=== PATIENT | male | born 1955 ===

== ENCOUNTER 2019-01-19 09:02 | Outpatient (CLI) | payer MEDICARE, BC ==
[2019-01-19] MEDS ORDERED: ALBUTEROL NEB 2.5 MG/3 ML INH ONE (11:00)
== END 2019-01-19 09:03 | disposition home or self-care (01) ==
LOC: RT 09:02
PROVIDERS: ATTEND Internal Medicine
DX: R06.2 Wheezing (principal)
CPT/HCPCS: 94060

== ENCOUNTER 2019-02-16 10:46 | Outpatient (CLI) | payer MEDICARE, BC ==
--- NOTE | 2019-02-16 13:32 | CT Report ---
Reason: PERSONAL HISTORY OF NICOTINE DEPENDENCE Procedure Date: 02/16/2019 Accession Number: [id number] / [id number] Procedure: CT - Low Dose Lung Cancer Screen CPT Code: FULL RESULT: EXAM CT LUNG SCREEN EXAM DATE: 02/16/2019 11:28 AM. HISTORY: 63-year-old patient with [id number] smoking history. Currently smoking: Yes. COMPARISON: None. TECHNIQUE: CT examination of the entire thorax without contrast was performed using low-dose technique. Thin section coronal, axial, sagittal and MIP axial images were obtained. In accordance with CT protocol optimization, one or more of the following dose reduction techniques were utilized for this exam: automated exposure control, adjustment of mA and/or KV based on patient size, or use of iterative reconstructive technique. FINDINGS: Nodules: Right upper lobe: 3 mm nodule image 50 series 4. 7 mm nodule image 79. Right middle lobe: None. Right lower lobe: None. Left upper lobe: None. Left lower lobe: 3 mm nodule image 106. Emphysema: Minimal. Pleura: Unremarkable. Aorta: Moderately atherosclerotic. Mediastinum: Unremarkable. Coronary calcifications: Severe three-vessel coronary calcifications. Other pulmonary findings: Small amount of scarring in the right upper lobe inferiorly. Other extrapulmonary findings: Hyperdensity within the gallbladder, vicarious excretion of contrast versus small calculi/sludge. IMPRESSION: Lung-RADS ASSESSMENT CATEGORY: 3 - probably benign. Probability of malignancy: 1-2%. RECOMMENDATION: Recommend 6 month follow-up low-dose chest CT. RADIA
== END 2019-02-16 10:47 | disposition home or self-care (01) ==
LOC: DI 10:46
PROVIDERS: ATTEND Internal Medicine
DX: Z12.2 Encounter for screening for malignant neoplasm of respiratory organs (principal); F17.210 Nicotine dependence, cigarettes, uncomplicated

== ENCOUNTER 2020-08-29 06:54 | Outpatient (CLI) | payer MEDICARE, BC ==
--- NOTE | 2020-08-29 09:09 | Ultrasound Report ---
PROCEDURE: Aorta Screening INDICATIONS: SCREENING FOR AAA TECHNIQUE: Real time scanning was performed of the aorta and iliac arteries, with image documentatio n. COMPARISON: None FINDINGS: Aorta: Proximal aortic diameter measures 2.5 x 2.9 cm. Mid-aorta measures 1.8 x 1.9 cm. Distal aor tic diameter is 2.0 x 2.1 cm. Iliac arteries: Right common iliac artery measures 1.2 x 1.2 cm. Left common iliac artery measures 1.1 x 1.1 cm. IMPRESSION: No aneurysm found. Moderate atherosclerotic calcific plaquing. Reviewed by: Sam Sharma MD on 08/29/2020 9:08 AM PST Approved by: Sam Sharma MD on 08/29/2020 9:08 AM PST Station ID: [id number]
== END 2020-08-29 06:55 | disposition home or self-care (01) ==
LOC: DI 06:54
PROVIDERS: ATTEND Internal Medicine
DX: Z13.6 Encounter for screening for cardiovascular disorders (principal); I70.0 Atherosclerosis of aorta; I70.8 Atherosclerosis of other arteries

== ENCOUNTER 2020-10-19 07:27 | Day surgery (SDC) | payer MEDICARE, BC ==
[2020-10-19] MEDS ORDERED: LACTATED RINGERS 1,000 ML IV ONE (07:30)
[2020-10-19] MEDS ORDERED: fentaNYL 250 MCG/5 ML VIAL ONE (08:21)
[2020-10-19] MEDS ORDERED: MIDAZOLAM 2 MG/2 ML VIAL ONE ×2 (08:21→08:44)
[2020-10-19 09:27] VITALS: BP 131/66
== END 2020-10-19 07:28 | disposition home or self-care (01) ==
LOC: SDS 07:27
PROVIDERS: ATTEND Surgery
PROC: 0DBN8ZZ Excision of Sigmoid Colon, Via Natural or Artificial Opening Endoscopic (ICD-10-PCS; 2020-10-19)
PROC: 0DBN8ZZ Excision of Sigmoid Colon, Via Natural or Artificial Opening Endoscopic (ICD-10-PCS; principal; 2020-10-19 08:30)
DX: R19.5 Other fecal abnormalities (principal); D12.5 Benign neoplasm of sigmoid colon; D12.7 Benign neoplasm of rectosigmoid junction; K62.1 Rectal polyp; K64.8 Other hemorrhoids; J43.9 Emphysema, unspecified; F17.200 Nicotine dependence, unspecified, uncomplicated
CPT/HCPCS: 45380; 45385; J3010; J7120

== ENCOUNTER 2021-07-12 09:16 | Outpatient (CLI) | payer MEDICARE, BC ==
--- NOTE | 2021-07-12 16:21 | XRAY Report ---
PROCEDURE: Hand 3 View BILAT INDICATIONS: BILATERAL THUMB PAIN TECHNIQUE: 3 views of each hand(s) acquired. COMPARISON: None FINDINGS: Bones: No fractures or dislocations. No suspicious bony lesions. Mild joint space narrowing in par ticular osteophyte formation at the scaphotrapezial and first metacarpal joints bilaterally. Mild per iarticular osteophyte formation at the interphalangeal joints bilaterally. Soft tissues: No suspicious soft tissue calcifications. 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 Reviewed by: Livia Sheehan MD on 07/12/2021 4:20 PM PDT Approved by: Livia Sheehan MD on 07/12/2021 4:20 PM PDT Station ID: [id number]
== END 2021-07-12 09:17 | disposition home or self-care (01) ==
LOC: LAB.S 09:16
PROVIDERS: ATTEND Nurse Practitioner Family
DX: M19.032 Primary osteoarthritis, left wrist (principal); M19.031 Primary osteoarthritis, right wrist; M18.0 Bilateral primary osteoarthritis of first carpometacarpal joints

== ENCOUNTER 2024-01-18 08:00 | Outpatient (CLI) | payer MEDICARE, OTHER | END 2024-01-18 23:59 | disposition home or self-care (01) | LOC: LAB.N 08:00 | PROVIDERS: ATTEND Registered Nurse | DX: R21 Rash and other nonspecific skin eruption (principal) | CPT/HCPCS: 81599; 87206; 87220 ==

== ENCOUNTER 2024-03-24 08:13 | Outpatient (CLI) | payer MEDICARE, OTHER ==
--- NOTE | 2024-03-26 00:57 | CT Report ---
PROCEDURE: Lung Cancer Screen INDICATIONS: SMOKER TECHNIQUE: A CT scan of the chest was performed. Intravenous contrast media was not administered. Images were re corded and evaluated at appropriate window settings. Reformats: axial MIP of the chest, coronal and s agittal. For radiation dose reduction, the following was used: automated exposure control, adjustment of mA and/or kV according to patient size. COMPARISON: CT chest lung cancer screening 02/16/2019. FINDINGS: Image quality: Diagnostic. Prior cancer history: Unsure. Lungs and pleura: No pleural effusions. No pneumothorax. Previously described 7 mm right upper lobe nodule on CT 01/29/2019 is no longer visualized. Stable scattered pulmonary micronodules. No new or enl arging pulmonary nodule. Mediastinum: Heart size is normal. No pericardial effusion. No large vessel abnormality. No mediastin al adenopathy by size criteria. Three vessel coronary artery calcifications. Chest wall and lower neck: Thyroid is unremarkable. No axillary or supraclavicular adenopathy by size . Bones: No aggressive osseous abnormality. Upper Abdomen: Cholelithiasis. No other gross abnormality on this limited low-dose noncontrast images . IMPRESSION: Lung RAD: 2 - Benign. Recommendation: Continue annual screening in 12 Months with LDCT Non-Lung Significant Findings: Coronary Arterial Calcification - Moderate or Severe. Consider cardiol ogy referral. Reviewed by: Baylee Chen MD, PhD on 03/25/2024 11:55 PM LUIS Approved by: Baylee Chen MD, PhD on 03/25/2024 11:55 PM [id number] Station ID: [id number]
== END 2024-03-24 08:14 | disposition home or self-care (01) ==
LOC: DI 08:13
PROVIDERS: ATTEND Registered Nurse
DX: Z12.2 Encounter for screening for malignant neoplasm of respiratory organs (principal); I25.10 Atherosclerotic heart disease of native coronary artery without angina pectoris; F17.210 Nicotine dependence, cigarettes, uncomplicated

== ENCOUNTER 2024-04-20 13:22 | Outpatient (CLI) | payer MEDICARE, OTHER ==
[2024-04-20] MEDS: ALBUTEROL 1 PUFF INH STA (15:42)
== END 2024-04-20 13:23 | disposition home or self-care (01) ==
LOC: RT 13:22
PROVIDERS: ATTEND Registered Nurse
DX: J44.9 Chronic obstructive pulmonary disease, unspecified (principal)
CPT/HCPCS: 94060; 94727; 94729